=== PATIENT | male | born 1980 | race Two or more races ===

== ENCOUNTER → 2017-08-15 | Outpatient (CLI) | payer OTHER ==
[~2017-08-15] MED LIST: AVALIDE 300-12.1 TAB; AVALIDE 300-12.1 TAB PO; JANUMET 50-501 UDTAB; JANUMET 50-501 UDTAB PO; LOVAZA1 G; LOVAZA1 G PO; NORVASC2.5 M1; NORVASC2.5 M1 PO; OSEL75CA PO; SEPTRA DS TABLE1 TAB PO; TRICOR145 MG; TRICOR145 MG PO; TUSSI PRES-B L120 M1 PO
== END | disposition home or self-care (01) ==
LOC: PPHC 14:02
DX: Z76.0 Encounter for issue of repeat prescription (principal)

== ENCOUNTER → 2017-11-16 08:37 | Outpatient (CLI) | payer OTHER | END | disposition home or self-care (01) | LOC: LAB 08:37 | DX: E11.65 Type 2 diabetes mellitus with hyperglycemia (principal); E03.8 Other specified hypothyroidism; E05.90 Thyrotoxicosis, unspecified without thyrotoxic crisis or storm; E78.2 Mixed hyperlipidemia; E55.9 Vitamin D deficiency, unspecified; D64.89 Other specified anemias; N39.0 Urinary tract infection, site not specified; N40.0 Benign prostatic hyperplasia without lower urinary tract symptoms ==

== ENCOUNTER 2017-11-27 09:59 | Outpatient (CLI) | payer OTHER | END 2017-11-27 14:41 | disposition home or self-care (01) | LOC: NUCLEAR 09:59 | DX: I87.2 Venous insufficiency (chronic) (peripheral) (principal); I72.4 Aneurysm of artery of lower extremity ==

== ENCOUNTER 2017-11-27 10:08 | Outpatient (CLI) | payer OTHER | END 2017-11-27 15:08 | disposition home or self-care (01) | LOC: SONOGRAMA 10:08 | DX: E04.1 Nontoxic single thyroid nodule (principal) ==

== ENCOUNTER → 2017-11-28 | Outpatient (CLI) | payer OTHER | END | disposition home or self-care (01) | LOC: NUCLEAR 09:37 | DX: I87.2 Venous insufficiency (chronic) (peripheral) (principal); I72.4 Aneurysm of artery of lower extremity ==

== ENCOUNTER → 2018-03-19 08:17 | Outpatient (CLI) | payer OTHER | END | disposition home or self-care (01) | LOC: LAB 08:17 | DX: E11.65 Type 2 diabetes mellitus with hyperglycemia (principal); E78.2 Mixed hyperlipidemia ==

== ENCOUNTER 2018-08-07 08:26 | Outpatient (CLI) | payer OTHER | END 2018-08-07 14:29 | disposition home or self-care (01) | LOC: LAB 08:26 | DX: E11.69 Type 2 diabetes mellitus with other specified complication (principal); E78.2 Mixed hyperlipidemia; E55.9 Vitamin D deficiency, unspecified ==

== ENCOUNTER 2018-09-14 09:18 | Outpatient (CLI) | payer OTHER | END 2018-09-14 09:25 | disposition home or self-care (01) | LOC: RAD 09:18 | DX: S93.402A Sprain of unspecified ligament of left ankle, initial encounter (principal) ==

== ENCOUNTER 2018-12-21 08:58 | Outpatient (CLI) | payer OTHER | END 2018-12-21 16:08 | disposition home or self-care (01) | LOC: LAB 08:58 | DX: E11.65 Type 2 diabetes mellitus with hyperglycemia (principal); E78.2 Mixed hyperlipidemia; D84.8 Other specified immunodeficiencies ==

== ENCOUNTER 2019-03-20 08:10 | Outpatient (CLI) | payer OTHER | END 2019-03-20 15:41 | disposition home or self-care (01) | LOC: LAB 08:10 | DX: E03.8 Other specified hypothyroidism (principal); E11.65 Type 2 diabetes mellitus with hyperglycemia; E78.2 Mixed hyperlipidemia; R94.5 Abnormal results of liver function studies; N40.0 Benign prostatic hyperplasia without lower urinary tract symptoms; E55.9 Vitamin D deficiency, unspecified ==

== ENCOUNTER 2019-06-25 09:00 | Outpatient (CLI) | payer OTHER | END 2019-06-25 16:19 | disposition home or self-care (01) | LOC: LAB 09:00 | DX: E11.69 Type 2 diabetes mellitus with other specified complication (principal); E78.2 Mixed hyperlipidemia; D51.0 Vitamin B12 deficiency anemia due to intrinsic factor deficiency; D64.89 Other specified anemias ==

== ENCOUNTER 2019-09-25 08:35 | Outpatient (CLI) | payer OTHER | END 2019-09-25 14:14 | disposition home or self-care (01) | LOC: LAB 08:35 | DX: E11.65 Type 2 diabetes mellitus with hyperglycemia (principal); E78.2 Mixed hyperlipidemia ==

== ENCOUNTER 2019-12-31 08:47 | Outpatient (CLI) | payer OTHER | END 2019-12-31 15:36 | disposition home or self-care (01) | LOC: LAB 08:47 | PROVIDERS: ATTEND Internal Medicine Endocrinology, Diabetes & Metabolism | DX: E11.65 Type 2 diabetes mellitus with hyperglycemia (principal); D64.89 Other specified anemias; E78.2 Mixed hyperlipidemia ==

== ENCOUNTER 2020-02-04 08:00 | Outpatient (CLI) | payer OTHER | END 2020-02-04 15:00 | disposition home or self-care (01) | LOC: PPH VACUNA 08:00 | DX: Z23 Encounter for immunization (principal) ==

== ENCOUNTER 2020-04-01 13:46 | Outpatient (CLI) | payer OTHER | END 2020-04-01 15:27 | disposition home or self-care (01) | LOC: LAB 13:46 | DX: Z20.828 Contact with and (suspected) exposure to other viral communicable diseases (principal) ==

== ENCOUNTER → 2020-05-14 09:01 | Outpatient (CLI) | payer OTHER | END | disposition home or self-care (01) | LOC: LAB 09:01 | PROVIDERS: ATTEND Internal Medicine Endocrinology, Diabetes & Metabolism | DX: D51.8 Other vitamin B12 deficiency anemias (principal); D64.89 Other specified anemias; E55.9 Vitamin D deficiency, unspecified; E78.2 Mixed hyperlipidemia; E11.65 Type 2 diabetes mellitus with hyperglycemia ==

== ENCOUNTER 2020-08-19 09:17 | Outpatient (CLI) | payer OTHER | END 2020-08-19 15:00 | disposition home or self-care (01) | LOC: LAB 09:17 | PROVIDERS: ATTEND Internal Medicine Endocrinology, Diabetes & Metabolism | DX: E03.8 Other specified hypothyroidism (principal); E78.2 Mixed hyperlipidemia; D64.89 Other specified anemias ==

== ENCOUNTER → 2020-12-23 09:25 | Outpatient (CLI) | payer OTHER | END | disposition home or self-care (01) | LOC: LAB 09:25 | PROVIDERS: ATTEND Internal Medicine Endocrinology, Diabetes & Metabolism | DX: D64.89 Other specified anemias (principal); E11.69 Type 2 diabetes mellitus with other specified complication ==

== ENCOUNTER 2021-02-15 08:00 | Outpatient (CLI) | payer OTHER | END 2021-02-15 08:30 | disposition home or self-care (01) | LOC: PPH VACUNA 08:00 | PROVIDERS: ATTEND Emergency Medicine Pediatric Emergency Medicine | DX: Z23 Encounter for immunization (principal) ==

== ENCOUNTER 2021-03-18 15:06 | Outpatient (CLI) | payer OTHER | END 2021-03-18 15:12 | disposition home or self-care (01) | LOC: LAB 15:06 | PROVIDERS: ATTEND General Practice | DX: R06.02 Shortness of breath (principal); Z03.818 Encounter for observation for suspected exposure to other biological agents ruled out ==

== ENCOUNTER 2021-05-18 09:12 | Outpatient (CLI) | payer OTHER | END 2021-05-18 09:18 | disposition home or self-care (01) | LOC: LAB 09:12 | PROVIDERS: ATTEND Internal Medicine Endocrinology, Diabetes & Metabolism | DX: D64.89 Other specified anemias (principal); E78.2 Mixed hyperlipidemia; E11.69 Type 2 diabetes mellitus with other specified complication ==

== ENCOUNTER 2021-07-27 09:18 | Outpatient (CLI) | payer OTHER | END 2021-07-27 09:37 | disposition home or self-care (01) | LOC: SONOGRAMA 09:18 | PROVIDERS: ATTEND Internal Medicine Hematology & Oncology | DX: D75.1 Secondary polycythemia (principal); I10 Essential (primary) hypertension; E11.9 Type 2 diabetes mellitus without complications; E78.2 Mixed hyperlipidemia; K82.9 Disease of gallbladder, unspecified ==

== ENCOUNTER 2021-07-27 10:39 | Outpatient (CLI) | payer OTHER | END 2021-07-27 15:00 | disposition home or self-care (01) | LOC: LAB 10:39 | PROVIDERS: ATTEND Internal Medicine Hematology & Oncology | DX: D50.8 Other iron deficiency anemias (principal); R79.9 Abnormal finding of blood chemistry, unspecified; I10 Essential (primary) hypertension; R74.02 Elevation of levels of lactic acid dehydrogenase [LDH]; K76.89 Other specified diseases of liver; D63.1 Anemia in chronic kidney disease; D63.8 Anemia in other chronic diseases classified elsewhere; D51.1 Vitamin B12 deficiency anemia due to selective vitamin B12 malabsorption with proteinuria; D51.0 Vitamin B12 deficiency anemia due to intrinsic factor deficiency; E03.8 Other specified hypothyroidism; E06.3 Autoimmune thyroiditis; R97.0 Elevated carcinoembryonic antigen [CEA]; R97.8 Other abnormal tumor markers; D75.1 Secondary polycythemia; E11.9 Type 2 diabetes mellitus without complications; E78.2 Mixed hyperlipidemia ==

== ENCOUNTER 2021-08-27 09:30 | Outpatient (CLI) | payer OTHER | END 2021-08-27 09:32 | disposition home or self-care (01) | LOC: TOM 09:30 | PROVIDERS: ATTEND Internal Medicine Hematology & Oncology | DX: N13.30 Unspecified hydronephrosis (principal); D51.3 Other dietary vitamin B12 deficiency anemia; D75.1 Secondary polycythemia; E83.10 Disorder of iron metabolism, unspecified; I10 Essential (primary) hypertension; E11.9 Type 2 diabetes mellitus without complications; E78.2 Mixed hyperlipidemia; K82.9 Disease of gallbladder, unspecified; E83.110 Hereditary hemochromatosis ==

== ENCOUNTER 2021-09-14 07:55 | Outpatient (CLI) | payer OTHER | END 2021-09-14 16:03 | disposition home or self-care (01) | LOC: LAB 07:55 | PROVIDERS: ATTEND Internal Medicine Hematology & Oncology | DX: D50.8 Other iron deficiency anemias (principal); R79.9 Abnormal finding of blood chemistry, unspecified; I10 Essential (primary) hypertension; R74.02 Elevation of levels of lactic acid dehydrogenase [LDH]; K76.89 Other specified diseases of liver; D47.2 Monoclonal gammopathy; C90.00 Multiple myeloma not having achieved remission; D51.3 Other dietary vitamin B12 deficiency anemia; D75.1 Secondary polycythemia; E83.10 Disorder of iron metabolism, unspecified; E11.9 Type 2 diabetes mellitus without complications; E78.2 Mixed hyperlipidemia; K82.9 Disease of gallbladder, unspecified; E83.110 Hereditary hemochromatosis; N13.30 Unspecified hydronephrosis ==

== ENCOUNTER 2021-09-20 08:09 | Outpatient (CLI) | payer OTHER | END 2021-09-20 13:40 | disposition home or self-care (01) | LOC: LAB 08:09 | PROVIDERS: ATTEND Internal Medicine Endocrinology, Diabetes & Metabolism | DX: E11.65 Type 2 diabetes mellitus with hyperglycemia (principal); D64.9 Anemia, unspecified; E78.2 Mixed hyperlipidemia ==

== ENCOUNTER 2021-10-06 14:44 | Outpatient (CLI) | payer OTHER | END 2021-10-06 14:45 | disposition home or self-care (01) | LOC: RAD 14:44 | PROVIDERS: ATTEND Surgery | DX: N20.1 Calculus of ureter (principal) ==

== ENCOUNTER → 2021-10-14 | Outpatient (CLI) | payer OTHER | END | disposition home or self-care (01) | LOC: LAB 11:52 | PROVIDERS: ATTEND Emergency Medicine Pediatric Emergency Medicine | DX: Z03.818 Encounter for observation for suspected exposure to other biological agents ruled out (principal) ==

== ENCOUNTER 2021-11-25 08:51 | Outpatient (CLI) | payer OTHER | END 2021-11-25 14:57 | disposition home or self-care (01) | LOC: LAB 08:51 | PROVIDERS: ATTEND Internal Medicine Hematology & Oncology | DX: D50.8 Other iron deficiency anemias (principal); R79.9 Abnormal finding of blood chemistry, unspecified; I10 Essential (primary) hypertension; R74.02 Elevation of levels of lactic acid dehydrogenase [LDH]; K76.89 Other specified diseases of liver; E21.0 Primary hyperparathyroidism; E83.52 Hypercalcemia; D51.3 Other dietary vitamin B12 deficiency anemia; D75.1 Secondary polycythemia; E83.10 Disorder of iron metabolism, unspecified; E11.9 Type 2 diabetes mellitus without complications; E78.2 Mixed hyperlipidemia; K82.9 Disease of gallbladder, unspecified; E83.110 Hereditary hemochromatosis; N13.30 Unspecified hydronephrosis ==

== ENCOUNTER 2022-01-27 12:31 | Outpatient (CLI) | payer OTHER | END 2022-01-27 12:36 | disposition home or self-care (01) | LOC: RAD 12:31 | PROVIDERS: ATTEND Surgery | DX: N20.0 Calculus of kidney (principal) ==

== ENCOUNTER 2022-01-31 08:10 | Outpatient (CLI) | payer OTHER | END 2022-01-31 15:22 | disposition home or self-care (01) | LOC: LAB 08:10 | PROVIDERS: ATTEND Surgery | DX: N39.0 Urinary tract infection, site not specified (principal); R10.9 Unspecified abdominal pain; E03.9 Hypothyroidism, unspecified; E78.5 Hyperlipidemia, unspecified; E11.9 Type 2 diabetes mellitus without complications; R73.09 Other abnormal glucose; I50.22 Chronic systolic (congestive) heart failure; N20.0 Calculus of kidney ==

== ENCOUNTER 2022-02-02 15:13 | Outpatient (CLI) | payer OTHER | END 2022-02-02 15:15 | disposition home or self-care (01) | LOC: LAB 15:13 | PROVIDERS: ATTEND Surgery | DX: Z11.52 Encounter for screening for COVID-19 (principal) ==

== ENCOUNTER 2022-02-11 07:36 | Outpatient (CLI) | payer OTHER | END 2022-02-11 08:05 | disposition home or self-care (01) | LOC: RAD 07:36 | PROVIDERS: ATTEND Surgery | DX: N20.1 Calculus of ureter (principal) ==

== ENCOUNTER 2022-02-17 08:28 | Outpatient (CLI) | payer OTHER | END 2022-02-17 09:42 | disposition home or self-care (01) | LOC: LAB 08:28 | DX: U07.1 COVID-19 (principal); B34.1 Enterovirus infection, unspecified ==

== ENCOUNTER 2022-02-18 07:15 | Outpatient (CLI) | payer OTHER | END 2022-02-18 07:17 | disposition home or self-care (01) | LOC: NUCLEAR 07:15 | PROVIDERS: ATTEND Internal Medicine Cardiovascular Disease | DX: I20.9 Angina pectoris, unspecified (principal) | CPT/HCPCS: 78452; 93017; A9500 ==

== ENCOUNTER 2022-02-25 08:00 | Outpatient (CLI) | payer OTHER | END 2022-02-25 08:05 | disposition home or self-care (01) | LOC: PPH VACUNA 08:00 | PROVIDERS: ATTEND Emergency Medicine Pediatric Emergency Medicine | DX: Z23 Encounter for immunization (principal) ==

== ENCOUNTER 2022-02-25 08:06 | Outpatient (CLI) | payer OTHER | END 2022-02-25 08:37 | disposition home or self-care (01) | LOC: LAB 08:06 | PROVIDERS: ATTEND Internal Medicine Hematology & Oncology | DX: D51.3 Other dietary vitamin B12 deficiency anemia (principal); D75.1 Secondary polycythemia; D50.8 Other iron deficiency anemias; R79.9 Abnormal finding of blood chemistry, unspecified; I10 Essential (primary) hypertension; R74.02 Elevation of levels of lactic acid dehydrogenase [LDH]; K76.89 Other specified diseases of liver; E11.9 Type 2 diabetes mellitus without complications; E78.2 Mixed hyperlipidemia; K82.9 Disease of gallbladder, unspecified; N13.30 Unspecified hydronephrosis; N20.0 Calculus of kidney ==

== ENCOUNTER 2022-02-25 09:44 | Outpatient (CLI) | payer OTHER | END 2022-02-25 09:54 | disposition home or self-care (01) | LOC: PPH VACUNA 09:44 | PROVIDERS: ATTEND Emergency Medicine Pediatric Emergency Medicine | DX: Z23 Encounter for immunization (principal) ==

== ENCOUNTER 2023-01-19 15:34 | Emergency (ER) | payer OTHER ==
[~2023-01-19] VITALS: Ht 182.9 cm; Wt 120.2 kg
[2023-01-19] MEDS ORDERED: TRULICITY1.5 MG/0.5 (16:18)
[2023-01-19] MEDS ORDERED: JARDIANCE10 MG (16:18)
[2023-01-19] MEDS ORDERED: TOPROL XL25 M1 (16:18)
== END 2023-01-19 18:47 | disposition home or self-care (01) ==
LOC: ER 15:34
DX: S92.911A Unspecified fracture of right toe(s), initial encounter for closed fracture (principal); X58.XXXA Exposure to other specified factors, initial encounter; Y93.69 Activity, other involving other sports and athletics played as a team or group; Y92.832 Beach as the place of occurrence of the external cause; Y99.8 Other external cause status; M79.671 Pain in right foot; E11.9 Type 2 diabetes mellitus without complications; I10 Essential (primary) hypertension